=== PATIENT | male | born 1960 | race Caucasian/White ===

== ENCOUNTER 2023-09-29 06:13 | Day surgery (SDC) | payer BC, SELFPAY ==
--- NOTE | 2023-09-01 12:20 | CM ---
Patient is scheduled for an elective R TSA on 09/29/23- he is a same day patient. Spoke with patient prior to surgery. Introduced role of Orthopedic Navigator. Patient reports that he lives with his and [id number] in a two story home.
Currently he functions independently. He does not use any DME and has never had VN services. PCP is Tona Dixon.
Discussed orthopedic program and post surgical plans. Patient will return home when directed by surgeon. Reviewed MD follow up and transition to outpatient therapy. Patient is in agreement with tentative plan and states that his will be home
with him and can assist if needed.
Plan: Orthopedic Navigator will be involved in the care of patient after surgery and will reassess discharge needs at that time.
[2023-09-08 14:18] VITALS: BMI 29.9
[2023-09-08 15:34] LABS: Hematocrit 49.3 % (39.0-52.0); Hemoglobin 17.1 g/dL (13.0-18.0); Mean Corp Hgb Conc. 34.7 g/dL (33.0-37.0); Mean Corpuscular Hgb 31.6 pg (27.0-31.0); Mean Corpuscular Volume 91.1 fL (80.0-94.0); Mean Platelet Volume 10.6 fL (7.4-10.4); Platelet Count 235 10^3/uL (130-400); Red Blood Cell Count 5.41 10^6/uL (4.70-6.10); Red Cell Dist. Width 12.5 % (11.5-14.5); White Blood Cell Count 7.8 10^3/uL (4.8-10.8)
[2023-09-08 15:48] LABS: ALT (SGPT) 20 U/L (0-50); AST (SGOT) 21 U/L (17-59); Albumin 4.6 g/dl (3.5-5.0); Alkaline Phosphatase 100 U/L (38-126); Blood Urea Nitrogen 17 mg/dl (9-20); Calcium 9.6 mg/dl (8.4-10.2); Carbon Dioxide 24 mmol/L (22-30); Chloride 103 mmol/L (98-107); Estimated Creatinine Clearance 121 ml/min; Glucose 139 mg/dl (70-99); Potassium 4.5 mmol/L (3.5-5.1); Sodium 137 mmol/L (135-145); Total Protein 7.2 g/dl (6.3-8.2); eGFR > 60.00
[2023-09-09 12:48] LABS: Glycohemoglobin (HgbA1c) 8.1 % (4.0-5.6)
[2023-09-23 11:17] VITALS: BMI 29.9
[2023-09-29] VITALS (9 sets, daily range): BP systolic 97–140; BP diastolic 64–89; BMI 29.9
[2023-09-29 06:43] LABS: Glucose - Point of Care 152 mg/dl (70-99)
[2023-09-29] MEDS: NORMOSOL-R 1000 IV (06:53)
[2023-09-29 10:31] LABS: Glucose - Point of Care 216 mg/dl (70-99)
[2023-09-29] MEDS: NOVOLOG vial 1 UNITS SC (10:58)
--- NOTE | 2023-09-29 11:40 | SUR.PHASEI ---
patient transported to [facility] by stretcher to use restroom,met by Earlene DONALDSON, assisted from stretcher to bathroom, voided in bathroom - tolerated activity well - [facility] and belching, dry heaves. passed quickly. no other c/o.
[2023-09-29] MEDS: ANCEF 5 IV (12:53)
[2023-09-29 13:10] LABS: Glucose - Point of Care 278 mg/dl (70-99)
[2023-09-29] MEDS: ZOFRAN 4 MG IV (13:25)
[2023-09-29] MEDS: NOVOLOG vial 2 UNITS SC (13:26)
== END 2023-09-29 13:56 | disposition home or self-care (01) ==
LOC: SDS 06:13
PROVIDERS: ATTENDING PHYSICIAN Orthopaedic Surgery Hand Surgery; FAMILY PHYSICIAN Nurse Practitioner Family; REFERRING PHYSICIAN Physician Assistant
DX: M19.011 Primary osteoarthritis, right shoulder (principal)
CPT/HCPCS: 23472; 36415; 73020; 80053; 82962; 83036; 85027; 87070; 93005; C1713; C1776